=== PATIENT | female | born 1960 | race Two or more races ===

== ENCOUNTER 2016-05-19 18:27 | Emergency (ER) | payer MEDICAID ==
[~2016-05-19] VITALS: Ht 154.9 cm; Wt 65.8 kg
[2016-05-19 18:50] VITALS: BP 164/99
[2016-05-19] MEDS ORDERED: ALBUTEROL FS 2.5 MG/0.5 ML VIAL.NEB NEB ONE (19:30)
[2016-05-19] MEDS ORDERED: ALBUTEROL FS 2.5 MG/0.5 ML VIAL.NEB ONE (19:38)
== END 2016-05-19 20:50 | disposition home or self-care (01) ==
LOC: ER 18:31
DX: J32.9 Chronic sinusitis, unspecified (principal); J06.9 Acute upper respiratory infection, unspecified; I10 Essential (primary) hypertension; E11.9 Type 2 diabetes mellitus without complications; E78.00 Pure hypercholesterolemia, unspecified
CPT/HCPCS: 71010; 94640; 99283; A4606; Z7610

== ENCOUNTER 2016-07-04 16:58 | Emergency (ER) | payer MEDICAID ==
[~2016-07-04] VITALS: Ht 165.1 cm; Wt 63.5 kg
[2016-07-04 17:13] VITALS: BP 136/93
[2016-07-04] MEDS ORDERED: ACETAMINOPHEN ES 500 MG TABLET ONE (17:47)
[2016-07-04] MEDS ORDERED: ACETAMINOPHEN 325 MG TABLET PO ONE (18:00)
== END 2016-07-04 18:46 | disposition home or self-care (01) ==
LOC: ER 16:59
DX: M25.511 Pain in right shoulder (principal); E11.9 Type 2 diabetes mellitus without complications; E78.00 Pure hypercholesterolemia, unspecified; I10 Essential (primary) hypertension
CPT/HCPCS: 73030; 99284; A4606; Z7610

== ENCOUNTER 2016-07-21 17:58 | Emergency (ER) | payer MEDICAID ==
[~2016-07-21] VITALS: Ht 152.4 cm; Wt 66.7 kg
--- NOTE | 2016-07-21 17:58 | NUR ---
C/O R ARM PAIN X 6 DAYS, NO RECENT TRAUMA OR INJURY. NAD NOTED. PT AAO X4, AMB WITH STEADY GAIT. RR EVEN AND UNLABRED. VSS. PENDING MD DICKEY.
[2016-07-21 18:44] LABS: BASOPHILS % (AUTO) 0.5 % (0.0-2.0); EOSINOPHILS # (AUTO) 0.2 /CMM (0.0-0.7); EOSINOPHILS % (AUTO) 2.7 % (0.0-6.0); HEMATOCRIT 38 % (33-45); HEMOGLOBIN 12.8 g/dL (11.5-14.8); LYMPHOCYTES # (AUTO) 3.1 /CMM (0.8-4.8); LYMPHOCYTES % (AUTO) 38.5 % (20.0-44.0); MEAN CORPUSCULAR HEMOGLOBIN 31 PG (26.0-33.0); MEAN CORPUSCULAR HGB CONC 34 g/dl (31.0-36.0); MEAN CORPUSCULAR VOLUME 92 fL (82-100); MONOCYTES # (AUTO) 0.5 /CMM (0.1-1.30); MONOCYTES % (AUTO) 5.6 % (2.0-12.0); NEUTROPHILS # (AUTO) 4.2 /CMM (1.8-8.9); NEUTROPHILS % (AUTO) 52.7 % (43.0-81.0); PLATELET COUNT (AUTO) 306 /CMM (150-450); RED BLOOD CELL COUNT(AUTO) 4.13 MIL/uL (4.0-5.2); WHITE BLOOD COUNT (AUTO) 8.1 K/uL (4.3-11.0)
[2016-07-21 18:58] LABS: ALANINE AMINOTRANSFERASE 56 U/L (12-78); ALBUMIN 4.2 g/dL (3.4-5.0); ALKALINE PHOSPHATASE 103 U/L (46-116); ASPARTATE AMINOTRANSFERASE 38 U/L (15-37); BILIRUBIN,TOTAL 0.5 mg/dL (0.2-1.0); CALCIUM, SERUM 9.8 mg/dL (8.5-10.1); CARBON DIOXIDE 31 mmol/L (21-32); CHLORIDE 103 mmol/L (98-107); GFR 58 mL/min (>60); GLUCOSE 181 mg/dL (74-106); POTASSIUM 3.6 mmol/L (3.5-5.1); SODIUM SERUM 141 mmol/L (136-145); TOTAL PROTEIN, SERUM 7.5 g/dL (6.4-8.2); UREA NITROGEN, BLOOD 22 mg/dL (7-18)
[2016-07-21 19:00] LABS: TROPONIN I < 0.017 ng/mL (0.00-0.056)
--- NOTE | 2016-07-21 19:33 | NUR ---
PT A/OX4 BREATHING EFFORTLESSLY ON ROOM AIR, PT REPORT RECIVED FROM PER RN, PT SON AT BEDSIDE, PT ON MONITOR, MDMADE AWARE WILL CONTINUE TO MONITOR.
--- NOTE | 2016-07-21 20:40 | NUR ---
Patient discharged to home in stable condition. Written and verbal after care instructions given. Patient verbalizes understanding of instruction.
[2016-07-21 20:41] VITALS: BP 140/82
== END 2016-07-21 20:42 | disposition home or self-care (01) ==
LOC: ER 18:01
DX: M25.511 Pain in right shoulder (principal); I10 Essential (primary) hypertension; E78.00 Pure hypercholesterolemia, unspecified; E11.9 Type 2 diabetes mellitus without complications
CPT/HCPCS: 36415; 71010; 72040; 73030; 73130; 80053; 84484; 85025; 93005; 99285; A4606; Z7610

== ENCOUNTER 2016-11-07 16:10 | Emergency (ER) | payer MEDICAID ==
[~2016-11-07] VITALS: Ht 160 cm; Wt 72.6 kg
[2016-11-07 16:40] VITALS: BP 164/88
--- NOTE | 2016-11-07 17:22 | NUR ---
URINE OBTAINED AND SENT TO LAB
[2016-11-07 17:45] LABS: APPEARANCE,URINE CLEAR (CLEAR); BILIRUBIN,URINE NEGATIVE (NEGATIVE); BLOOD, URINE TRACE Ery/uL (NEGATIVE); COLOR,URINE YELLOW (YELLOW); KETONES,URINE NEGATIVE (NEGATIVE); LEUKOCYTE ESTERASE ,URINE TRACE (NEGATIVE); NITRITE, URINE NEGATIVE (NEGATIVE); PROTEIN,URINE NEGATIVE (NEGATIVE); UGLUCOSE 3+ mg/dL (NEGATIVE); UROBILINOGEN,URINE 0.2 EU/dL (0.2)
[2016-11-07 17:55] LABS: BACTERIA,URINE None seen /HPF (None Seen); RBC,URINE 0-2 /HPF (0-2); SQUAMOUS EPITHELIAL CELL,UR Few /HPF (None Seen); WBC,URINE 0-2 /HPF (0-3)
[2016-11-07] MEDS ORDERED: IV NS 0.9% 1,000 ML BAG IV ONE (18:00)
[2016-11-07] MEDS ORDERED: IV SET PRIMARY 1 EA INFUS.SET MC ONE (18:09)
[2016-11-07] MEDS ORDERED: IV NS 0.9% 1,000 ML ONE (18:09)
[2016-11-07 18:15] LABS: BASOPHILS # (AUTO) 0.1 /CMM (0.0-0.2); BASOPHILS % (AUTO) 1.4 % (0.0-2.0); EOSINOPHILS # (AUTO) 0.2 /CMM (0.0-0.7); EOSINOPHILS % (AUTO) 2.5 % (0.0-6.0); HEMATOCRIT 39 % (33-45); HEMOGLOBIN 13.2 g/dL (11.5-14.8); LYMPHOCYTES # (AUTO) 3.2 /CMM (0.8-4.8); LYMPHOCYTES % (AUTO) 43.7 % (20.0-44.0); MEAN CORPUSCULAR HEMOGLOBIN 31 PG (26.0-33.0); MEAN CORPUSCULAR HGB CONC 34 g/dl (31.0-36.0); MEAN CORPUSCULAR VOLUME 91 fL (82-100); MONOCYTES # (AUTO) 0.5 /CMM (0.1-1.30); MONOCYTES % (AUTO) 6.8 % (2.0-12.0); NEUTROPHILS # (AUTO) 3.2 /CMM (1.8-8.9); NEUTROPHILS % (AUTO) 45.6 % (43.0-81.0); PLATELET COUNT (AUTO) 264 /CMM (150-450); RED BLOOD CELL COUNT(AUTO) 4.29 MIL/uL (4.0-5.2); WHITE BLOOD COUNT (AUTO) 7.2 K/uL (4.3-11.0)
--- NOTE | 2016-11-07 18:17 | NUR ---
IV STARTED ON RIGHT HAND, 20 G, IV NS 1L STARTED.
[2016-11-07 18:49] LABS: CALCIUM, SERUM 8.9 mg/dL (8.5-10.1); CREATININE 0.9 mg/dL (0.6-1.3); POTASSIUM 3.9 mmol/L (3.5-5.1)
--- NOTE | 2016-11-07 19:03 | NUR ---
IV removed. Catheter intact and site benign. Pressure and 4x4 applied to site. No bleeding noted.Patient discharged to home in stable condition. Written and verbal after care instructions given. Patient verbalizes understanding of instruction. Ambulatory with a steady gait.
== END 2016-11-07 19:06 | disposition home or self-care (01) ==
LOC: ER 16:12
DX: N76.0 Acute vaginitis (principal); E11.9 Type 2 diabetes mellitus without complications; E78.00 Pure hypercholesterolemia, unspecified; I10 Essential (primary) hypertension
CPT/HCPCS: 36415; 80048; 81001; 82962 ×2; 85025; 96360; 99284; A4606; J7030; Z7610; 81000-TC

== ENCOUNTER 2017-02-13 17:25 | Emergency (ER) | payer MEDICAID ==
[~2017-02-13] VITALS: Ht 165.1 cm; Wt 63.5 kg
--- NOTE | 2017-02-13 17:45 | NUR ---
PRESENTS TO ER C/O R EYE REDNESS, HEADACHE, ELYSSA PAIN/BACK PAIN x 2 DAYS. A/OX 4. BREATHING EVEN AND UNLABORED. NO SOB. VITALS STABLE. SAFETY AND COMFORT MEASURES IN PLACE. AWAITING MD ORDERS.
[2017-02-13] MEDS ORDERED: HYDROCODONE/APAP 5/325MG 1 EACH TABLET ONE (18:18)
--- NOTE | 2017-02-13 18:25 | NUR ---
PATIENT MEDICATED PER MD ORDERS.
[2017-02-13] MEDS ORDERED: HYDROCODONE/APAP 5/325MG 1 EACH TABLET PO ONE (18:30)
--- NOTE | 2017-02-13 18:35 | NUR ---
Patient discharged to home in stable condition. Written and verbal after care instructions given. Patient verbalizes understanding of instruction.
[2017-02-13 18:43] VITALS: BP 129/72
== END 2017-02-13 18:43 | disposition home or self-care (01) ==
LOC: ER 17:34
DX: H11.31 Conjunctival hemorrhage, right eye (principal); R51 Headache; M54.2 Cervicalgia; I10 Essential (primary) hypertension; E11.9 Type 2 diabetes mellitus without complications; E78.00 Pure hypercholesterolemia, unspecified
CPT/HCPCS: 82962; 99282; A4606; Z7610

== ENCOUNTER 2017-05-03 00:22 | Emergency (ER) | payer MEDICAID ==
[~2017-05-03] VITALS: Ht 165.1 cm; Wt 63.5 kg
--- NOTE | 2017-05-03 00:37 | NUR ---
PT RECEIVED FROM HOME C/O N/V X1 DAY. NO SOB NOTED AT THIS TIME. NO PAIN AT THIS TIME. A/OX4 VSS NAD. WILL CONTINUE TO MONITOR FOR ANY CHANGES
--- NOTE | 2017-05-03 00:45 | NUR ---
ER AT BEDSIDE
[2017-05-03] MEDS ORDERED: MORPHINE SULFATE INJ 2 MG/ML DISP.SYRIN IV ONE (01:00)
[2017-05-03] MEDS ORDERED: ONDANSETRON HCL/PF 4 MG/2 ML VIAL IVP ONE (01:00)
[2017-05-03] MEDS ORDERED: IV NS 0.9% 1,000 ML BAG IV ONE (01:00)
[2017-05-03] MEDS ORDERED: ONDANSETRON HCL/PF 4 MG/2 ML VIAL ONE (01:02)
[2017-05-03] MEDS ORDERED: MORPHINE SULFATE INJ 4 MG/ML DISP.SYRIN ONE (01:03)
[2017-05-03 01:14] LABS: BASOPHILS % (AUTO) 0.2 % (0.0-2.0); EOSINOPHILS # (AUTO) 0.2 /CMM (0.0-0.7); EOSINOPHILS % (AUTO) 1.2 % (0.0-6.0); HEMATOCRIT 39 % (33-45); HEMOGLOBIN 13.4 g/dL (11.5-14.8); LYMPHOCYTES % (AUTO) 8.4 % (20.0-44.0); MEAN CORPUSCULAR HEMOGLOBIN 32 PG (26.0-33.0); MEAN CORPUSCULAR HGB CONC 34 g/dl (31.0-36.0); MEAN CORPUSCULAR VOLUME 92 fL (82-100); MONOCYTES # (AUTO) 0.4 /CMM (0.1-1.30); MONOCYTES % (AUTO) 3.1 % (2.0-12.0); NEUTROPHILS # (AUTO) 10.8 /CMM (1.8-8.9); NEUTROPHILS % (AUTO) 87.1 % (43.0-81.0); PLATELET COUNT (AUTO) 273 /CMM (150-450); RDW COEFFICIENT OF VARIATION 12.9 (11.5-15.0); RED BLOOD CELL COUNT(AUTO) 4.23 MIL/uL (4.0-5.2); WHITE BLOOD COUNT (AUTO) 12.4 K/uL (4.3-11.0)
[2017-05-03 01:16] LABS: APPEARANCE,URINE CLEAR (CLEAR); BILIRUBIN,URINE NEGATIVE (NEGATIVE); BLOOD, URINE NEGATIVE Ery/uL (NEGATIVE); COLOR,URINE YELLOW (YELLOW); KETONES,URINE NEGATIVE (NEGATIVE); LEUKOCYTE ESTERASE ,URINE 1+ (NEGATIVE); NITRITE, URINE NEGATIVE (NEGATIVE); PROTEIN,URINE NEGATIVE (NEGATIVE); UGLUCOSE TRACE mg/dL (NEGATIVE); UROBILINOGEN,URINE 0.2 EU/dL (0.2)
[2017-05-03 01:25] LABS: BACTERIA,URINE Moderate /HPF (None Seen); RBC,URINE 0-2 /HPF (0-2); SQUAMOUS EPITHELIAL CELL,UR Moderate /HPF (None Seen); WBC,URINE 21-50 /HPF (0-3)
[2017-05-03 01:27] LABS: CALCIUM, SERUM 8.6 mg/dL (8.5-10.1); CREATININE 0.8 mg/dL (0.6-1.3); POTASSIUM 3.5 mmol/L (3.5-5.1)
[2017-05-03 01:34] LABS: ALBUMIN 3.4 g/dL (3.4-5.0); BILIRUBIN,DIRECT 0.1 mg/dL (0.0-0.2); BILIRUBIN,TOTAL 0.7 mg/dL (0.2-1.0); TOTAL PROTEIN, SERUM 7.1 g/dL (6.4-8.2)
[2017-05-03 03:32] VITALS: BP 148/93
== END 2017-05-03 03:33 | disposition home or self-care (01) ==
LOC: ER 00:23
DX: N39.0 Urinary tract infection, site not specified (principal); K76.0 Fatty (change of) liver, not elsewhere classified; E11.9 Type 2 diabetes mellitus without complications; E78.00 Pure hypercholesterolemia, unspecified; E86.0 Dehydration; I10 Essential (primary) hypertension; N30.00 Acute cystitis without hematuria
CPT/HCPCS: 36415; 76705; 80048; 80076; 81001; 83690; 85025; 87086; 96374; 96375; 99285; A4606; J2270; J2405; J7030 ×2; Z7610; 81000-TC

== ENCOUNTER 2017-07-17 20:43 | Emergency (ER) | payer SELFPAY ==
[~2017-07-17] VITALS: Ht 160 cm; Wt 63.5 kg
[2017-07-17 20:51] VITALS: BP 136/77
[2017-07-17 21:07] LABS: APPEARANCE,URINE Clear (CLEAR); BILIRUBIN,URINE Negative (NEGATIVE); BLOOD, URINE Trace-intact Ery/uL (NEGATIVE); COLOR,URINE Yellow (YELLOW); KETONES,URINE Negative (NEGATIVE); LEUKOCYTE ESTERASE ,URINE Small (NEGATIVE); NITRITE, URINE Negative (NEGATIVE); PH,URINE 7.5 (5.0-8.0); PROTEIN,URINE Negative (NEGATIVE); UGLUCOSE >=1000 mg/dL (NEGATIVE); UROBILINOGEN,URINE 0.2 EU/dL (0.2)
[2017-07-17 21:29] LABS: BACTERIA,URINE Few /HPF (None Seen); RBC,URINE 2-4/HPF /HPF (0-2); WBC,URINE 51-80 /HPF (0-3)
[2017-07-17 21:30] LABS: SQUAMOUS EPITHELIAL CELL,UR Few /HPF (None Seen); URINE AMORPHOUS URATE Few /HPF (None Seen)
== END 2017-07-17 22:20 | disposition home or self-care (01) ==
LOC: ER 20:47
DX: N39.0 Urinary tract infection, site not specified (principal); E11.9 Type 2 diabetes mellitus without complications; E78.00 Pure hypercholesterolemia, unspecified; I10 Essential (primary) hypertension
CPT/HCPCS: 81000-TC; 87086-TC; 87186-TC; A4606; Z7610

== ENCOUNTER 2017-11-15 15:38 | Emergency (ER) | payer SELFPAY ==
[~2017-11-15] VITALS: Ht 160 cm; Wt 69.4 kg
[2017-11-15] MEDS ORDERED: MECLIZINE HCL 25 MG TABLET PO ONE (16:00)
[2017-11-15] MEDS ORDERED: ONDANSETRON HCL/PF - ER 4 MG/2 ML VIAL IV ONE (16:00)
[2017-11-15] MEDS ORDERED: ONDANSETRON HCL/PF 4 MG/2 ML VIAL ONE (16:05)
[2017-11-15] MEDS ORDERED: MECLIZINE HCL 25 MG TABLET ONE (16:05)
[2017-11-15 16:15] LABS: BASOPHILS % (AUTO) 0.6 % (0.0-2.0); EOSINOPHILS % (AUTO) 2.6 % (0.0-6.0); HEMATOCRIT 40 % (33-45); HEMOGLOBIN 13.6 g/dL (11.5-14.8); LYMPHOCYTES # (AUTO) 2.6 /CMM (0.8-4.8); MEAN CORPUSCULAR HEMOGLOBIN 32 PG (26.0-33.0); MEAN CORPUSCULAR HGB CONC 35 g/dl (31.0-36.0); MEAN CORPUSCULAR VOLUME 93 fL (82-100); MONOCYTES # (AUTO) 0.4 /CMM (0.1-1.30); MONOCYTES % (AUTO) 5.3 % (2.0-12.0); NEUTROPHILS # (AUTO) 3.9 /CMM (1.8-8.9); NEUTROPHILS % (AUTO) 55.5 % (43.0-81.0); PLATELET COUNT (AUTO) 250 /CMM (150-450); RDW COEFFICIENT OF VARIATION 12.5 (11.5-15.0); RED BLOOD CELL COUNT(AUTO) 4.22 MIL/uL (4.0-5.2); WHITE BLOOD COUNT (AUTO) 7.1 K/uL (4.3-11.0)
[2017-11-15 16:22] LABS: CALCIUM, SERUM 9.8 mg/dL (8.5-10.1); CREATININE 0.7 mg/dL (0.6-1.3); POTASSIUM 3.7 mmol/L (3.5-5.1)
--- NOTE | 2017-11-15 16:23 | NUR ---
PATIENT IS BACK FROM CT
[2017-11-15 16:27] LABS: INR 0.88 (0.85-1.15)
[2017-11-15 17:35] VITALS: BP 148/80
--- NOTE | 2017-11-15 17:36 | NUR ---
Patient discharged to home in stable condition. Written and verbal after care instructions given. Patient verbalizes understanding of instruction.IV removed. Catheter intact and site benign. Pressure and 4x4 applied to site. No bleeding noted.
== END 2017-11-15 17:37 | disposition home or self-care (01) ==
LOC: ER 15:42
DX: R42 Dizziness and giddiness (principal); I10 Essential (primary) hypertension; E11.9 Type 2 diabetes mellitus without complications; E78.00 Pure hypercholesterolemia, unspecified; Z98.890 Other specified postprocedural states
CPT/HCPCS: 36415; 70450-TC; 80048-TC; 85025-TC; 85730-TC; A4606; J2405; J8597; Z7610

== ENCOUNTER 2018-09-13 10:17 | Emergency (ER) | payer MEDICAID ==
[~2018-09-13] VITALS: Ht 165.1 cm; Wt 74.8 kg
[2018-09-13 10:55] LABS: APPEARANCE,URINE Slightly Cloudy (CLEAR); BILIRUBIN,URINE Negative (NEGATIVE); BLOOD, URINE Moderate Ery/uL (NEGATIVE); COLOR,URINE Yellow (YELLOW); KETONES,URINE Negative (NEGATIVE); LEUKOCYTE ESTERASE ,URINE Small (NEGATIVE); NITRITE, URINE Negative (NEGATIVE); PH,URINE 5.5 (5.0-8.0); PROTEIN,URINE Negative (NEGATIVE); UGLUCOSE 250 MG/DL mg/dL (NEGATIVE); UROBILINOGEN,URINE 0.2 EU/dL (0.2)
[2018-09-13 11:04] LABS: RBC,URINE 21-50 /HPF (0-2)
[2018-09-13 11:05] LABS: BACTERIA,URINE Few /HPF (None Seen); SQUAMOUS EPITHELIAL CELL,UR Few /HPF (None Seen); WBC,URINE 81-100 /HPF (0-3)
[2018-09-13] MEDS ORDERED: CEFTRIAXONE 500 MG VIAL ONE (11:30)
[2018-09-13] MEDS ORDERED: CEFTRIAXONE 500 MG VIAL IM ONE (11:30)
[2018-09-13] MEDS ORDERED: LIDOCAINE /MPF 1% VIAL 5 ML VIAL ONE (11:31)
--- NOTE | 2018-09-13 11:44 | NUR ---
Patient discharged to home in stable condition. Written and verbal after care instructions given. Patient verbalizes understanding of instruction.
[2018-09-13 11:46] VITALS: BP 148/75
== END 2018-09-13 11:46 | disposition home or self-care (01) ==
LOC: ER 10:24
DX: N39.0 Urinary tract infection, site not specified (principal); I10 Essential (primary) hypertension; E11.9 Type 2 diabetes mellitus without complications; E78.00 Pure hypercholesterolemia, unspecified
CPT/HCPCS: 81001; 87086; 96372; 99283; J0696; J3490; 81000-TC

== ENCOUNTER 2019-01-10 15:27 | Emergency (ER) | payer MEDICAID, OTHER ==
[~2019-01-10] VITALS: Ht 152.4 cm; Wt 71.2 kg
[2019-01-10 15:30] VITALS: BP 157/92
--- NOTE | 2019-01-10 16:28 | NUR ---
SEEN AND EXAMINED BY ELISABET KING.
[2019-01-10] MEDS ORDERED: MORPHINE SULFATE INJ 10 MG/ML DISP.SYRIN IV ONE (16:30)
[2019-01-10] MEDS ORDERED: KETOROLAC TROMETHAMINE INJ 60 MG/2 ML VIAL IM ONE (16:30)
[2019-01-10] MEDS ORDERED: KETOROLAC TROMETHAMINE INJ 30 MG/ML VIAL ONE (16:43)
[2019-01-10] MEDS ORDERED: MORPHINE SULFATE INJ 4 MG/ML DISP.SYRIN ONE (16:43)
--- NOTE | 2019-01-10 16:52 | NUR ---
PT IS WHEELED TO CT SCAN VIA [facility]
== END 2019-01-10 18:22 | disposition home or self-care (01) ==
LOC: ER 15:44
DX: M54.12 Radiculopathy, cervical region (principal); M50.321 Other cervical disc degeneration at C4-C5 level; I10 Essential (primary) hypertension; R51 Headache; E11.9 Type 2 diabetes mellitus without complications; E78.00 Pure hypercholesterolemia, unspecified
CPT/HCPCS: 72125; 96372; 96374; 99284; J1885; J2270

== ENCOUNTER 2019-03-16 15:29 | Emergency (ER) | payer MEDICAID, OTHER ==
[~2019-03-16] VITALS: Ht 162.6 cm; Wt 73.5 kg
[2019-03-16 15:35] VITALS: BP 152/79
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
--- NOTE | 2019-03-16 15:59 | NUR ---
FERNANDO NAZ AT BEDSIDE
[2019-03-16] MEDS ORDERED: HYDROCODONE/APAP 5/325MG 1 EACH TABLET PO ONE (16:30)
[2019-03-16] MEDS ORDERED: CYCLOBENZAPRINE 10 MG TABLET PO ONE (16:30)
[2019-03-16] MEDS ORDERED: HYDROCODONE/APAP 5/325MG 1 EACH TABLET ONE (16:33)
[2019-03-16] MEDS ORDERED: CYCLOBENZAPRINE 10 MG TABLET ONE (16:33)
--- NOTE | 2019-03-16 17:26 | NUR ---
Patient discharged to home in stable condition. Written and verbal after care instructions given. Patient verbalizes understanding of instruction.
--- NOTE | 2019-03-16 17:27 | NUR ---
Patient discharged to home in stable condition. Written and verbal after care instructions given. Patient verbalizes understanding of instruction.
== END 2019-03-16 17:28 | disposition home or self-care (01) ==
LOC: ER 15:31 → EDBD 15:31 → ER 17:28
DX: S16.1XXA Strain of muscle, fascia and tendon at neck level, initial encounter (principal); M25.511 Pain in right shoulder; R51 Headache; E11.9 Type 2 diabetes mellitus without complications; I10 Essential (primary) hypertension; E78.00 Pure hypercholesterolemia, unspecified; V49.49XA Driver injured in collision with other motor vehicles in traffic accident, initial encounter; Y93.89 Activity, other specified; Y92.413 State road as the place of occurrence of the external cause; Y99.8 Other external cause status
CPT/HCPCS: 72050-TC; 73030-TC

== ENCOUNTER 2019-05-26 16:40 | Emergency (ER) | payer OTHER, MEDICAID ==
[~2019-05-26] VITALS: Ht 162.6 cm; Wt 68.0 kg
--- NOTE | 2019-05-26 16:55 | NUR ---
CAME IN FOR COUGH AND CONGESTION X 1 MONTH, SEASONAL ALLERGIES X 1 MONTH, TO ER BED 11, HOOKED TO MONITOR, CHANGED TO HOSP GOWN, PROVIDED W WARM BLANKET, AOx 4, BREATHING EVEN AND UNLABORED, NAD NOTED. AWAITING MD DICKEY
--- NOTE | 2019-05-26 17:09 | NUR ---
FERNANDO KIM AT BEDSIDE
[2019-05-26] MEDS ORDERED: ACETAMINOPHEN 325 MG TABLET PO ONE (17:30)
[2019-05-26] MEDS ORDERED: ACETAMINOPHEN ES 500 MG TABLET ONE (17:38)
--- NOTE | 2019-05-26 17:41 | NUR ---
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
--- NOTE | 2019-05-26 18:30 | NUR ---
Patient discharged to home in stable condition. Written and verbal after care instructions given. Patient verbalizes understanding of instruction.
[2019-05-26 18:38] VITALS: BP 154/71
== END 2019-05-26 18:50 | disposition home or self-care (01) ==
LOC: ER 16:45
DX: J45.909 Unspecified asthma, uncomplicated (principal); J98.11 Atelectasis; I10 Essential (primary) hypertension; E78.00 Pure hypercholesterolemia, unspecified; E11.9 Type 2 diabetes mellitus without complications
CPT/HCPCS: 71045-TC

== ENCOUNTER 2022-02-20 18:34 | Emergency (ER) | payer MEDICAID, OTHER ==
[~2022-02-20] VITALS: Ht 165.1 cm; Wt 73.0 kg
--- NOTE | 2022-02-20 18:54 | NUR ---
To ER bed 2, c/o bilateral eye itching, pain and discharge x 3 days. taking allergy meds, aaox3, breathing even and non labored, awaiting md tony
[2022-02-20] MEDS ORDERED: LORA10TA7 PO (19:20)
[2022-02-20] MEDS ORDERED: HYDR453.3 TP (19:20)
[2022-02-20] MEDS ORDERED: diphenhydrAMINE HCL 25 MG CAPSULE PO ONE (19:30)
[2022-02-20] MEDS ORDERED: diphenhydrAMINE HCL 50 MG CAPSULE ONE (19:31)
--- NOTE | 2022-02-20 19:34 | NUR ---
Patient discharged to home in stable condition. Written and verbal after care instructions given. Patient verbalizes understanding of instruction. PT ambulatory with a steady gait
[2022-02-20 19:35] VITALS: BP 161/88
== END 2022-02-20 19:38 | disposition home or self-care (01) ==
LOC: ER 18:34
DX: L25.9 Unspecified contact dermatitis, unspecified cause (principal); H10.13 Acute atopic conjunctivitis, bilateral; I10 Essential (primary) hypertension; E11.9 Type 2 diabetes mellitus without complications; E78.00 Pure hypercholesterolemia, unspecified; Z79.899 Other long term (current) drug therapy
CPT/HCPCS: 99282; Q0163

== ENCOUNTER 2022-06-04 15:28 | Emergency (ER) | payer MEDICAID ==
[~2022-06-04] VITALS: Ht 157.5 cm; Wt 72.6 kg
[~2022-06-04 15:28] MED LIST: HYDR453.3 TP; LORA10TA7 PO
[2022-06-04 15:40] VITALS: BP 156/77
[2022-06-04] MEDS ORDERED: PRED50TA PO (15:54)
[2022-06-04] MEDS ORDERED: predniSONE 20 MG TABLET ONE (16:00)
[2022-06-04] MEDS: predniSONE 50 MG TABLET PO ONE (16:05)
--- NOTE | 2022-06-04 16:07 | NUR ---
Patient discharged to home in stable condition. Written and verbal after care instructions given. Patient verbalizes understanding of instruction.
== END 2022-06-04 16:06 | disposition home or self-care (01) ==
LOC: ER 15:38
DX: J30.9 Allergic rhinitis, unspecified (principal); I10 Essential (primary) hypertension; E78.00 Pure hypercholesterolemia, unspecified; E11.9 Type 2 diabetes mellitus without complications; Z79.899 Other long term (current) drug therapy

== ENCOUNTER 2022-07-06 09:33 | Emergency (ER) | payer MEDICAID ==
[~2022-07-06] VITALS: Ht 160 cm; Wt 79.4 kg
[~2022-07-06 09:33] MED LIST changes: +PRED50TA PO
[2022-07-06 09:46] VITALS: BP 155/88
--- NOTE | 2022-07-06 09:46 | NUR ---
bib family for cough x 3 days, sore throat and body aches x 3 days
[2022-07-06] MEDS ORDERED: KETOROLAC TROMETHAMINE 15 MG/ML VIAL ONE (10:58)
[2022-07-06] MEDS ORDERED: KETOROLAC TROMETHAMINE INJ 30 MG/ML VIAL IM ONE (11:00)
--- NOTE | 2022-07-06 11:00 | NUR ---
COVID SWAB COLLECTED AND SENT
[2022-07-06] MEDS ORDERED: BENZ-13 PO (11:14)
[2022-07-06] MEDS ORDERED: IBUP-1955 PO (11:14)
--- NOTE | 2022-07-06 11:43 | NUR ---
Patient discharged to home in stable condition. Written and verbal after care instructions given. Patient verbalizes understanding of instruction.
== END 2022-07-06 11:44 | disposition home or self-care (01) ==
LOC: ER 09:38
DX: J02.8 Acute pharyngitis due to other specified organisms (principal); J06.9 Acute upper respiratory infection, unspecified; R05.9 Cough, unspecified; I10 Essential (primary) hypertension; E11.9 Type 2 diabetes mellitus without complications; E78.5 Hyperlipidemia, unspecified; Z79.899 Other long term (current) drug therapy; Z20.822 Contact with and (suspected) exposure to COVID-19
CPT/HCPCS: 99283; 87426; 96372; J1885; C9803

== ENCOUNTER 2022-10-07 11:59 | Emergency (ER) | payer MEDICAID ==
[~2022-10-07] VITALS: Ht 157.5 cm; Wt 78.9 kg
[~2022-10-07 11:59] MED LIST changes: +BENZ-13 PO; +IBUP-1955 PO
--- NOTE | 2022-10-07 12:27 | NUR ---
IV LINE IS ESTABLISHED, BLOOD SPECIMEN COLLECTED AND SENT TO THE LAB. THE LINE IS SALINE LOCKED.
--- NOTE | 2022-10-07 12:28 | NUR ---
NAUSEA, HEAD AND BODYACHES SINCE MONDAY. VOMITTED 2X TODAY. RATES PAINS 11/07. WILL CONTINUE TO MONITOR THE PATIENT.
[2022-10-07] MEDS ORDERED: IV NS 0.9% 1,000 ML BAG IV ONE (12:30)
[2022-10-07] MEDS ORDERED: ONDANSETRON HCL/PF 4 MG/2 ML VIAL IVP ONE (12:30)
[2022-10-07] MEDS ORDERED: ONDANSETRON HCL/PF 4 MG/2 ML VIAL ONE (12:30)
--- NOTE | 2022-10-07 12:36 | NUR ---
URINE COLLECTED AND SENT TO THE LAB
[2022-10-07 12:41] LABS: BASOPHILS % (AUTO) 0.5 % (0.0-2.0); EOSINOPHILS % (AUTO) 3.7 % (0.0-6.0); HEMATOCRIT 40 % (33-45); HEMOGLOBIN 13.1 g/dL (11.5-14.8); LYMPHOCYTES # (AUTO) 2.3 K/uL (0.8-4.8); MEAN CORPUSCULAR HGB CONC 33 g/dl (31.0-36.0); MEAN CORPUSCULAR VOLUME 94 fL (82-100); MONOCYTES # (AUTO) 0.5 K/uL (0.1-1.30); MONOCYTES % (AUTO) 7.9 % (2.0-12.0); NEUTROPHILS # (AUTO) 3.7 K/uL (1.8-8.9); NEUTROPHILS % (AUTO) 53.9 % (43.0-81.0); PLATELET COUNT (AUTO) 282 K/uL (150-450); RED BLOOD CELL COUNT(AUTO) 4.27 MIL/uL (4.0-5.2); WHITE BLOOD COUNT (AUTO) 6.8 K/uL (4.3-11.0)
[2022-10-07 12:48] LABS: CALCIUM, SERUM 9.9 mg/dL (8.5-10.1); CREATININE 0.7 mg/dL (0.6-1.3); POTASSIUM 3.9 mmol/L (3.5-5.1)
[2022-10-07 12:53] LABS: ALBUMIN 3.6 g/dL (3.4-5.0); BILIRUBIN,DIRECT 0.1 mg/dL (0.0-0.2); BILIRUBIN,TOTAL 0.6 mg/dL (0.2-1.0); TOTAL PROTEIN, SERUM 7.5 g/dL (6.4-8.2)
[2022-10-07 13:35] LABS: BILIRUBIN,URINE NEGATIVE (NEGATIVE); COLOR,URINE YELLOW (YELLOW); LEUKOCYTE ESTERASE ,URINE NEGATIVE (NEGATIVE); NITRITE, URINE NEGATIVE (NEGATIVE); PROTEIN,URINE NEGATIVE (NEGATIVE); UGLUCOSE NEGATIVE (NEGATIVE); UROBILINOGEN,URINE 0.2 EU/dL (0.2)
[2022-10-07] MEDS ORDERED: ONDA4TAB11 PO (13:43)
[2022-10-07 14:11] VITALS: BP 155/84
--- NOTE | 2022-10-07 14:11 | NUR ---
IV removed. Catheter intact and site benign. Pressure and 4x4 applied to site. No bleeding noted.Patient discharged to home in stable condition. Written and verbal after care instructions given. Patient verbalizes understanding of instruction.
== END 2022-10-07 14:11 | disposition home or self-care (01) ==
LOC: ER 12:03
DX: R11.2 Nausea with vomiting, unspecified (principal); I10 Essential (primary) hypertension; E78.5 Hyperlipidemia, unspecified; E11.9 Type 2 diabetes mellitus without complications; E78.00 Pure hypercholesterolemia, unspecified; Z79.899 Other long term (current) drug therapy
CPT/HCPCS: 99283; 96374; 96361; 85025; 80048; 80076; 81003; 36415; J2405; J7030

== ENCOUNTER 2023-03-18 21:09 | Emergency (ER) | payer MEDICAID ==
[~2023-03-18] VITALS: Ht 160 cm; Wt 72.6 kg
[~2023-03-18 21:09] MED LIST changes: +ONDA4TAB11 PO
[2023-03-18] MEDS: MORPHINE SULFATE INJ 2 MG/ML DISP.SYRIN IV ONE (21:30)
[2023-03-18 22:11] LABS: APPEARANCE,URINE CLEAR (CLEAR); BILIRUBIN,URINE NEGATIVE (NEGATIVE); BLOOD, URINE NEGATIVE Ery/uL (NEGATIVE); COLOR,URINE YELLOW (YELLOW); KETONES,URINE NEGATIVE (NEGATIVE); LEUKOCYTE ESTERASE ,URINE 1+ (NEGATIVE); NITRITE, URINE NEGATIVE (NEGATIVE); PH,URINE 7.5 (5.0-8.0); PROTEIN,URINE NEGATIVE (NEGATIVE); UGLUCOSE NEGATIVE (NEGATIVE); UROBILINOGEN,URINE 0.2 EU/dL (0.2)
[2023-03-18 22:26] LABS: ADD URINE CULTURE YES; BACTERIA,URINE 1+ /HPF (None Seen); RBC,URINE NONE SEEN /HPF (0-2)
[2023-03-18] MEDS ORDERED: MORPHINE SULFATE INJ 4 MG/ML DISP.SYRIN ONE (22:41)
[2023-03-18 22:44] LABS: BASOPHILS % (AUTO) 0.4 % (0.0-2.0); EOSINOPHILS # (AUTO) 0.2 K/uL (0.0-0.7); EOSINOPHILS % (AUTO) 2.7 % (0.0-6.0); HEMATOCRIT 37 % (33-45); HEMOGLOBIN 12.2 g/dL (11.5-14.8); LYMPHOCYTES # (AUTO) 2.6 K/uL (0.8-4.8); LYMPHOCYTES % (AUTO) 35.4 % (20.0-44.0); MEAN CORPUSCULAR HEMOGLOBIN 31 PG (26.0-33.0); MEAN CORPUSCULAR HGB CONC 33 g/dl (31.0-36.0); MEAN CORPUSCULAR VOLUME 94 fL (82-100); MONOCYTES # (AUTO) 0.7 K/uL (0.1-1.30); MONOCYTES % (AUTO) 9.2 % (2.0-12.0); NEUTROPHILS # (AUTO) 3.9 K/uL (1.8-8.9); NEUTROPHILS % (AUTO) 52.3 % (43.0-81.0); PLATELET COUNT (AUTO) 248 K/uL (150-450); RED BLOOD CELL COUNT(AUTO) 3.96 MIL/uL (4.0-5.2); RED CELL DISTRIBUTION WIDTH 13.8 % (11.5-15.0); WHITE BLOOD COUNT (AUTO) 7.5 K/uL (4.3-11.0)
[2023-03-18 23:02] LABS: CALCIUM, SERUM 9.1 mg/dL (8.5-10.1); CREATININE 0.9 mg/dL (0.6-1.3); POTASSIUM 3.7 mmol/L (3.5-5.1)
[2023-03-18 23:06] LABS: ALBUMIN 3.3 g/dL (3.4-5.0); BILIRUBIN,DIRECT 0.1 mg/dL (0.0-0.2); BILIRUBIN,TOTAL 0.5 mg/dL (0.2-1.0)
[2023-03-19] MEDS ORDERED: NITR100C6 PO (01:11)
[2023-03-19] MEDS ORDERED: NITROFURANTOIN/MONOHYDRATE MACROCRYSTALS 100 MG CAPSULE ONE (01:33)
[2023-03-19] MEDS: NITROFURANTOIN/MONOHYDRATE MACROCRYSTALS 100 MG CAPSULE PO ONE (01:42)
[2023-03-19 01:45] VITALS: BP 151/80; TEMP 98.2; O2SAT 98
== END 2023-03-19 01:46 | disposition home or self-care (01) ==
LOC: ER 21:10
DX: N39.0 Urinary tract infection, site not specified (principal); R10.30 Lower abdominal pain, unspecified; I10 Essential (primary) hypertension; E78.00 Pure hypercholesterolemia, unspecified; E11.9 Type 2 diabetes mellitus without complications
CPT/HCPCS: 99285; 74176; 96374; 85025; 80048; 87086; 83690; 80076; 81001; 36415; J2270

== ENCOUNTER 2023-04-27 09:51 | Emergency (ER) | payer MEDICAID ==
[~2023-04-27] VITALS: Ht 154.9 cm; Wt 75.7 kg
[~2023-04-27 09:51] MED LIST changes: +NITR100C6 PO
[2023-04-27] MEDS ORDERED: IBUPROFEN 600 MG TABLET ONE (12:07)
[2023-04-27] MEDS: IBUPROFEN 600 MG TABLET PO ONE (12:10)
[2023-04-27 13:18] VITALS: BP 132/78; TEMP 98.6; O2SAT 100
== END 2023-04-27 13:19 | disposition home or self-care (01) ==
LOC: ER 09:51
DX: B34.9 Viral infection, unspecified (principal); R51.9 Headache, unspecified; R68.83 Chills (without fever); R05.9 Cough, unspecified; I10 Essential (primary) hypertension; E78.5 Hyperlipidemia, unspecified; E11.9 Type 2 diabetes mellitus without complications; E78.00 Pure hypercholesterolemia, unspecified; Z20.822 Contact with and (suspected) exposure to COVID-19
CPT/HCPCS: 99284; 71045; 87426; 87804 ×2; C9803

== ENCOUNTER 2023-07-23 11:22 | Emergency (ER) | payer MEDICAID ==
[~2023-07-23] VITALS: Ht 160 cm; Wt 72.6 kg
[2023-07-23] MEDS ORDERED: KETOROLAC TROMETHAMINE INJ 30 MG/ML VIAL ONE (12:36)
[2023-07-23] MEDS ORDERED: LORAZEPAM 1 MG TABLET ONE (12:36)
[2023-07-23] MEDS ORDERED: MECLIZINE HCL 25 MG TABLET ONE (12:36)
[2023-07-23] MEDS: MECLIZINE HCL 12.5 MG TABLET PO ONE (12:43)
[2023-07-23] MEDS: LORAZEPAM 1 MG TABLET PO ONE (12:43)
[2023-07-23] MEDS: KETOROLAC TROMETHAMINE INJ 60 MG/2 ML VIAL IM ONE (12:43)
[2023-07-23] MEDS ORDERED: MECL-159 PO (13:24)
[2023-07-23] MEDS ORDERED: PROMETHAZINE HCL SYRUP 6.25 MG/5 ML UDC PO STA (13:39)
[2023-07-23] MEDS ORDERED: diphenhydrAMINE HCL ELIX 25 MG/10 ML UDC ONE (14:02)
[2023-07-23] MEDS ORDERED: SCOPOLAMINE PATCH 1 MG/72HR TD ONE (14:03)
[2023-07-23] MEDS: DIPHENHYDRAMINE HCL 12.5 MG/5 ML UDC PO ONE (14:08)
[2023-07-23] MEDS: SCOPOLAMINE PATCH 1 MG/72HR TD ONE (14:09)
[2023-07-23] MEDS ORDERED: SCOP1PAT11 TD (14:52)
[2023-07-23 14:59] VITALS: BP 141/87; TEMP 98.2; O2SAT 100
== END 2023-07-23 15:00 | disposition home or self-care (01) ==
LOC: ER 11:29
DX: R42 Dizziness and giddiness (principal); I10 Essential (primary) hypertension; E11.9 Type 2 diabetes mellitus without complications
CPT/HCPCS: 99285; 70450; 96372; J8597; Q0163 ×2; Q0169; J1885

== ENCOUNTER 2023-08-11 08:58 | Emergency (ER) | payer MEDICAID ==
[~2023-08-11] VITALS: Ht 160 cm; Wt 72.6 kg
[~2023-08-11 08:58] MED LIST changes: +MECL-159 PO; +SCOP1PAT11 TD
[2023-08-11] MEDS ORDERED: KETOROLAC TROMETHAMINE INJ 30 MG/ML VIAL ONE (09:30)
[2023-08-11] MEDS ORDERED: CYCLOBENZAPRINE 10 MG TABLET ONE (09:30)
[2023-08-11] MEDS ORDERED: KETOROLAC TROMETHAMINE INJ 30 MG/ML VIAL IV ONE (09:30)
[2023-08-11] MEDS: KETOROLAC TROMETHAMINE INJ 60 MG/2 ML VIAL IM ONE (09:32)
[2023-08-11] MEDS: CYCLOBENZAPRINE 10 MG TABLET PO ONE (09:32)
[2023-08-11 10:06] LABS: BASOPHILS % (AUTO) 0.6 % (0.0-2.0); EOSINOPHILS # (AUTO) 0.2 K/uL (0.0-0.7); EOSINOPHILS % (AUTO) 4.2 % (0.0-6.0); HEMATOCRIT 39 % (33-45); LYMPHOCYTES # (AUTO) 2.3 K/uL (0.8-4.8); LYMPHOCYTES % (AUTO) 39.3 % (20.0-44.0); MEAN CORPUSCULAR HEMOGLOBIN 32 PG (26.0-33.0); MEAN CORPUSCULAR HGB CONC 33 g/dl (31.0-36.0); MEAN CORPUSCULAR VOLUME 95 fL (82-100); MONOCYTES # (AUTO) 0.3 K/uL (0.1-1.30); MONOCYTES % (AUTO) 5.6 % (2.0-12.0); NEUTROPHILS # (AUTO) 2.9 K/uL (1.8-8.9); NEUTROPHILS % (AUTO) 50.3 % (43.0-81.0); PLATELET COUNT (AUTO) 234 K/uL (150-450); RED BLOOD CELL COUNT(AUTO) 4.14 MIL/uL (4.0-5.2); RED CELL DISTRIBUTION WIDTH 13.6 % (11.5-15.0); WHITE BLOOD COUNT (AUTO) 5.7 K/uL (4.3-11.0)
[2023-08-11 10:16] LABS: CALCIUM, SERUM 9.3 mg/dL (8.5-10.1); CREATININE 0.7 mg/dL (0.6-1.3); POTASSIUM 4.1 mmol/L (3.5-5.1)
[2023-08-11 10:22] LABS: ALBUMIN 3.3 g/dL (3.4-5.0); BILIRUBIN,DIRECT 0.2 mg/dL (0.0-0.2); BILIRUBIN,TOTAL 0.7 mg/dL (0.2-1.0); TOTAL PROTEIN, SERUM 7.2 g/dL (6.4-8.2)
[2023-08-11 11:32] LABS: APPEARANCE,URINE Clear (CLEAR); BILIRUBIN,URINE Negative (NEGATIVE); BLOOD, URINE Negative Ery/uL (NEGATIVE); COLOR,URINE YELLOW (YELLOW); KETONES,URINE Negative (NEGATIVE); LEUKOCYTE ESTERASE ,URINE Negative (NEGATIVE); NITRITE, URINE Negative (NEGATIVE); PROTEIN,URINE Negative (NEGATIVE); UGLUCOSE 250 MG/DL mg/dL (NEGATIVE); UROBILINOGEN,URINE 0.2 EU/dL (0.2)
[2023-08-11] MEDS ORDERED: CYCL5TAB PO (11:41)
[2023-08-11 12:22] VITALS: BP 126/74; TEMP 98.2; O2SAT 98
== END 2023-08-11 12:27 | disposition home or self-care (01) ==
LOC: ER 09:02
DX: M54.50 Low back pain, unspecified (principal); I10 Essential (primary) hypertension; E11.9 Type 2 diabetes mellitus without complications; E78.00 Pure hypercholesterolemia, unspecified; Z79.899 Other long term (current) drug therapy
CPT/HCPCS: 99285; 74176; 96372; 85025; 80048; 87086; 83690; 80076; 81003; 36415; J1885

== ENCOUNTER 2023-12-20 17:43 | Emergency (ER) | payer MEDICAID ==
[~2023-12-20] VITALS: Ht 167.6 cm; Wt 63.5 kg
[~2023-12-20 17:43] MED LIST changes: +CYCL5TAB PO
[2023-12-20] MEDS ORDERED: IBUPROFEN 600 MG TABLET ONE (19:11)
[2023-12-20] MEDS ORDERED: ACETAMINOPHEN ES 500 MG TABLET ONE (19:11)
[2023-12-20] MEDS: IBUPROFEN 600 MG TABLET PO ONE (19:13)
[2023-12-20] MEDS: ACETAMINOPHEN ES 500 MG TABLET PO ONE (19:13)
[2023-12-20] MEDS ORDERED: IBUP-1953 PO (19:23)
[2023-12-20 19:33] VITALS: BP 130/79; TEMP 98.2; O2SAT 99
== END 2023-12-20 19:34 | disposition home or self-care (01) ==
LOC: ER 17:48
DX: S90.121A Contusion of right lesser toe(s) without damage to nail, initial encounter (principal); I10 Essential (primary) hypertension; E11.9 Type 2 diabetes mellitus without complications; E78.00 Pure hypercholesterolemia, unspecified; Z79.1 Long term (current) use of non-steroidal anti-inflammatories (NSAID); Z98.890 Other specified postprocedural states; Z79.899 Other long term (current) drug therapy; Z79.891 Long term (current) use of opiate analgesic; W20.8XXA Other cause of strike by thrown, projected or falling object, initial encounter; Y93.89 Activity, other specified; Y92.89 Other specified places as the place of occurrence of the external cause; Y99.8 Other external cause status
CPT/HCPCS: 73660-TC

== ENCOUNTER 2024-01-28 15:25 | Emergency (ER) | payer MEDICAID ==
[~2024-01-28] VITALS: Ht 157.5 cm; Wt 74.8 kg
[~2024-01-28 15:25] MED LIST changes: +IBUP-1953 PO
[2024-01-28] MEDS ORDERED: ACETAMINOPHEN ES 500 MG TABLET ONE (16:03)
[2024-01-28] MEDS ORDERED: IBUPROFEN 600 MG TABLET ONE (16:03)
[2024-01-28] MEDS ORDERED: ONDANSETRON HCL/PF 4 MG/2 ML VIAL ONE (16:03)
[2024-01-28] MEDS: IV LR 1000 ML 1,000 ML BAG IV ONE (16:14)
[2024-01-28] MEDS: IBUPROFEN 600 MG TABLET PO ONE (16:14)
[2024-01-28] MEDS: ONDANSETRON HCL/PF - ER 4 MG/2 ML VIAL IV ONE (16:14)
[2024-01-28] MEDS: ACETAMINOPHEN ES 500 MG TABLET PO ONE (16:14)
[2024-01-28 16:45] LABS: BASOPHILS # (AUTO) 0.1 K/uL (0.0-0.2); BASOPHILS % (AUTO) 0.6 % (0.0-2.0); EOSINOPHILS % (AUTO) 0.2 % (0.0-6.0); HEMATOCRIT 38 % (33-45); HEMOGLOBIN 12.4 g/dL (11.5-14.8); LYMPHOCYTES % (AUTO) 7.8 % (20.0-44.0); MEAN CORPUSCULAR HEMOGLOBIN 31 PG (26.0-33.0); MEAN CORPUSCULAR HGB CONC 33 g/dl (31.0-36.0); MEAN CORPUSCULAR VOLUME 94 fL (82-100); MONOCYTES # (AUTO) 0.7 K/uL (0.1-1.30); MONOCYTES % (AUTO) 5.4 % (2.0-12.0); NEUTROPHILS # (AUTO) 11.4 K/uL (1.8-8.9); PLATELET COUNT (AUTO) 294 K/uL (150-450); RED BLOOD CELL COUNT(AUTO) 3.99 MIL/uL (4.0-5.2); RED CELL DISTRIBUTION WIDTH 13.7 % (11.5-15.0); WHITE BLOOD COUNT (AUTO) 13.3 K/uL (4.3-11.0)
[2024-01-28 17:00] LABS: CALCIUM, SERUM 9.4 mg/dL (8.5-10.1); CARBON DIOXIDE 26 mmol/L (21-32); CHLORIDE 107 mmol/L (98-107); CREATININE 0.8 mg/dL (0.6-1.3); GLUCOSE 99 mg/dL (74-106); POTASSIUM 3.8 mmol/L (3.5-5.1); SODIUM SERUM 141 mmol/L (136-145); UREA NITROGEN, BLOOD 12 mg/dL (7-18)
[2024-01-28 17:04] LABS: ALANINE AMINOTRANSFERASE 32 U/L (12-78); ALBUMIN 3.6 g/dL (3.4-5.0); ALKALINE PHOSPHATASE 142 U/L (46-116); ASPARTATE AMINOTRANSFERASE 26 U/L (15-37); BILIRUBIN,DIRECT 0.2 mg/dL (0.0-0.2); BILIRUBIN,TOTAL 0.8 mg/dL (0.2-1.0); TOTAL PROTEIN, SERUM 7.5 g/dL (6.4-8.2)
[2024-01-28 17:28] LABS: APPEARANCE,URINE CLEAR (CLEAR); BILIRUBIN,URINE NEGATIVE (NEGATIVE); BLOOD, URINE NEGATIVE Ery/uL (NEGATIVE); COLOR,URINE YELLOW (YELLOW); KETONES,URINE NEGATIVE (NEGATIVE); LEUKOCYTE ESTERASE ,URINE NEGATIVE (NEGATIVE); NITRITE, URINE NEGATIVE (NEGATIVE); PROTEIN,URINE NEGATIVE (NEGATIVE); UGLUCOSE NEGATIVE (NEGATIVE); UROBILINOGEN,URINE 0.2 EU/dL (0.2)
[2024-01-28] MEDS: VANCOMYCIN 1 GM in IV D5W 250 ML IV ONE (17:33)
[2024-01-28] MEDS: CEFEPIME 1 GM in IV D5W 50 ML IV ONE (17:33)
[2024-01-28] MEDS ORDERED: IBUP-1490 PO (19:29)
[2024-01-28] MEDS ORDERED: POLY10DR OP (19:29)
[2024-01-28] MEDS ORDERED: ACET-2605 PO (19:29)
[2024-01-28] MEDS ORDERED: AZIT250T13 PO (19:29)
[2024-01-28 19:37] VITALS: BP 132/88; TEMP 98; O2SAT 98
== END 2024-01-28 19:37 | disposition home or self-care (01) ==
LOC: ER 15:29
DX: H10.9 Unspecified conjunctivitis (principal); E86.0 Dehydration; I10 Essential (primary) hypertension; E11.9 Type 2 diabetes mellitus without complications; E78.00 Pure hypercholesterolemia, unspecified; Z98.890 Other specified postprocedural states; Z79.52 Long term (current) use of systemic steroids; Z20.822 Contact with and (suspected) exposure to COVID-19; Z79.899 Other long term (current) drug therapy
CPT/HCPCS: 99285; 96365; 71045; 96361; 96375; 87426; 96368; 93005; 87804 ×2; 85025; 80048; 87040; 87086; 83605 ×2; 80076; 81003; 36415; 84484; J3370; J2405 ×2; J7060; J7120; J0692

== ENCOUNTER 2024-03-13 12:53 | Emergency (ER) | payer MEDICAID ==
[~2024-03-13] VITALS: Ht 157.5 cm; Wt 74.8 kg
[~2024-03-13 12:53] MED LIST changes: +ACET-2605 PO; +AZIT250T13 PO; +IBUP-1490 PO; +POLY10DR OP
[2024-03-13 12:55] VITALS: TEMP 98
[2024-03-13] MEDS: ONDANSETRON HCL/PF 4 MG/2 ML VIAL IVP ONE (13:18)
[2024-03-13 13:21] LABS: BASOPHILS % (AUTO) 0.4 % (0.0-2.0); EOSINOPHILS # (AUTO) 0.2 K/uL (0.0-0.7); EOSINOPHILS % (AUTO) 2.6 % (0.0-6.0); HEMATOCRIT 43 % (33-45); HEMOGLOBIN 14.3 g/dL (11.5-14.8); LYMPHOCYTES # (AUTO) 1.2 K/uL (0.8-4.8); MEAN CORPUSCULAR HEMOGLOBIN 32 PG (26.0-33.0); MEAN CORPUSCULAR HGB CONC 34 g/dl (31.0-36.0); MEAN CORPUSCULAR VOLUME 95 fL (82-100); MONOCYTES # (AUTO) 0.2 K/uL (0.1-1.30); MONOCYTES % (AUTO) 2.9 % (2.0-12.0); NEUTROPHILS # (AUTO) 5.3 K/uL (1.8-8.9); NEUTROPHILS % (AUTO) 77.1 % (43.0-81.0); PLATELET COUNT (AUTO) 271 K/uL (150-450); RED BLOOD CELL COUNT(AUTO) 4.51 MIL/uL (4.0-5.2); RED CELL DISTRIBUTION WIDTH 14.4 % (11.5-15.0); WHITE BLOOD COUNT (AUTO) 6.9 K/uL (4.3-11.0)
[2024-03-13] MEDS ORDERED: ONDANSETRON HCL/PF 4 MG/2 ML VIAL ONE (13:21)
[2024-03-13 13:56] LABS: CALCIUM, SERUM 9.5 mg/dL (8.5-10.1); CREATININE 0.8 mg/dL (0.6-1.3); POTASSIUM 3.6 mmol/L (3.5-5.1)
[2024-03-13 14:02] LABS: ALBUMIN 3.7 g/dL (3.4-5.0); BILIRUBIN,DIRECT 0.2 mg/dL (0.0-0.2); BILIRUBIN,TOTAL 0.8 mg/dL (0.2-1.0); TOTAL PROTEIN, SERUM 7.8 g/dL (6.4-8.2)
[2024-03-13] MEDS ORDERED: ONDA4TAB5 PO (15:05)
[2024-03-13] MEDS ORDERED: FAMO-131 PO (15:05)
[2024-03-13] MEDS: IV NS 0.9% 1,000 ML BAG IV ONE (15:10)
[2024-03-13] MEDS: LIDOCAINE VISCOUS 2% UD 15 ML UDC MM ONE (15:14)
[2024-03-13] MEDS: FAMOTIDINE/PF INJ 20 MG/2 ML VIAL IV ONE (15:14)
[2024-03-13] MEDS: MAG HYDROX/AL HYDROX/SIMETH 30 ML UDC PO ONE (15:14)
[2024-03-13] MEDS ORDERED: MAG HYDROX/AL HYDROX/SIMETH 30 ML UDC ONE (15:16)
[2024-03-13] MEDS ORDERED: FAMOTIDINE/PF INJ 20 MG/2 ML VIAL IV ONE (15:18)
[2024-03-13] MEDS ORDERED: LIDOCAINE VISCOUS 2% UD 15 ML UDC ONE (15:18)
[2024-03-13 16:26] VITALS: BP 148/92; O2SAT 100
== END 2024-03-13 16:05 | disposition home or self-care (01) ==
LOC: ER 12:59
DX: R11.2 Nausea with vomiting, unspecified (principal); R10.13 Epigastric pain; R51.9 Headache, unspecified; R53.83 Other fatigue; E11.9 Type 2 diabetes mellitus without complications; E78.5 Hyperlipidemia, unspecified; I10 Essential (primary) hypertension; Z79.52 Long term (current) use of systemic steroids; Z20.822 Contact with and (suspected) exposure to COVID-19
CPT/HCPCS: 99284; 96374; 96361; 96375; 87426; 93005; 87804 ×2; 85025; 80048; 83690; 80076; 36415; J3490; J2405; J7030

== ENCOUNTER 2024-10-23 17:35 | Emergency (ER) | payer MEDICAID, OTHER ==
[~2024-10-23] VITALS: Ht 167.6 cm; Wt 76.2 kg
[~2024-10-23 17:35] MED LIST changes: +FAMO-131 PO; +ONDA4TAB5 PO
[2024-10-23] MEDS: ONDANSETRON HCL/PF - ER 4 MG/2 ML VIAL IV ONE (18:30)
[2024-10-23] MEDS ORDERED: MORPHINE SULFATE INJ 2 MG/ML DISP.SYRIN ONE (18:31)
[2024-10-23] MEDS ORDERED: ONDANSETRON HCL/PF 4 MG/2 ML VIAL ONE (18:31)
[2024-10-23] MEDS: MORPHINE SULFATE INJ 2 MG/ML DISP.SYRIN IV ONE (18:42)
[2024-10-23 18:59] LABS: BASOPHILS % (AUTO) 0.4 % (0.0-2.0); EOSINOPHILS # (AUTO) 0.2 K/uL (0.0-0.7); EOSINOPHILS % (AUTO) 1.7 % (0.0-6.0); HEMATOCRIT 40 % (33-45); HEMOGLOBIN 13.2 g/dL (11.5-14.8); LYMPHOCYTES # (AUTO) 2.7 K/uL (0.8-4.8); LYMPHOCYTES % (AUTO) 21.4 % (20.0-44.0); MEAN CORPUSCULAR HEMOGLOBIN 31 PG (26.0-33.0); MEAN CORPUSCULAR HGB CONC 33 g/dl (31.0-36.0); MEAN CORPUSCULAR VOLUME 94 fL (82-100); MONOCYTES # (AUTO) 0.6 K/uL (0.1-1.30); MONOCYTES % (AUTO) 4.3 % (2.0-12.0); NEUTROPHILS # (AUTO) 9.2 K/uL (1.8-8.9); NEUTROPHILS % (AUTO) 72.2 % (43.0-81.0); PLATELET COUNT (AUTO) 291 K/uL (150-450); RED BLOOD CELL COUNT(AUTO) 4.25 MIL/uL (4.0-5.2); RED CELL DISTRIBUTION WIDTH 13.5 % (11.5-15.0); WHITE BLOOD COUNT (AUTO) 12.7 K/uL (4.3-11.0)
[2024-10-23 19:12] LABS: CALCIUM, SERUM 9.9 mg/dL (8.5-10.1); CREATININE 0.6 mg/dL (0.6-1.3); POTASSIUM 3.7 mmol/L (3.5-5.1)
[2024-10-23 19:23] LABS: ALBUMIN 3.8 g/dL (3.4-5.0); BILIRUBIN,TOTAL 0.8 mg/dL (0.2-1.0); TOTAL PROTEIN, SERUM 7.4 g/dL (6.4-8.2)
[2024-10-23 19:26] LABS: APPEARANCE,URINE CLEAR (CLEAR); BILIRUBIN,URINE NEGATIVE (NEGATIVE); BLOOD, URINE 3+ Ery/uL (NEGATIVE); COLOR,URINE YELLOW (YELLOW); KETONES,URINE NEGATIVE (NEGATIVE); LEUKOCYTE ESTERASE ,URINE 1+ (NEGATIVE); NITRITE, URINE NEGATIVE (NEGATIVE); PROTEIN,URINE NEGATIVE (NEGATIVE); UGLUCOSE NEGATIVE (NEGATIVE); UROBILINOGEN,URINE 0.2 EU/dL (0.2)
[2024-10-23 19:32] LABS: ADD URINE CULTURE YES; BACTERIA,URINE Few /HPF (None Seen); SQUAMOUS EPITHELIAL CELL,UR Moderate /HPF (None Seen)
[2024-10-23] MEDS ORDERED: CEFTRIAXONE 1GM BAG (ER ONLY) 50 ML IV ONE (20:57)
[2024-10-23] MEDS ORDERED: KETOROLAC TROMETHAMINE INJ 30 MG/ML VIAL ONE (20:57)
[2024-10-23] MEDS ORDERED: KETOROLAC TROMETHAMINE 15 MG/ML VIAL ONE (20:59)
[2024-10-23] MEDS ORDERED: CEPH500C2 PO (21:02)
[2024-10-23] MEDS ORDERED: IBUP-1490 PO (21:02)
[2024-10-23] MEDS: CEFTRIAXONE 1 G in IV D5W 50 ML IV ONE (21:03)
[2024-10-23] MEDS: KETOROLAC TROMETHAMINE 15 MG/ML VIAL IV ONE (21:03)
[2024-10-23 21:24] VITALS: BP 105/47; TEMP 98.5; O2SAT 98
== END 2024-10-23 21:25 | disposition home or self-care (01) ==
LOC: ER 17:57
DX: N39.0 Urinary tract infection, site not specified (principal); R10.11 Right upper quadrant pain; I10 Essential (primary) hypertension; E11.9 Type 2 diabetes mellitus without complications; E78.00 Pure hypercholesterolemia, unspecified; Z79.52 Long term (current) use of systemic steroids; Z79.899 Other long term (current) drug therapy
CPT/HCPCS: 99285; 74176; 96365; 96375; 85025; 83690; 81001; 36415; 80053; J1885; J0696 ×2; J2405 ×2; J7060; J2270; 87086-TC

== ENCOUNTER 2025-01-21 16:27 | Emergency (ER) | payer OTHER ==
[~2025-01-21] VITALS: Ht 157.5 cm; Wt 72.6 kg
[~2025-01-21 16:27] MED LIST changes: +CEPH500C2 PO
[2025-01-21 16:53] VITALS: TEMP 98.6
[2025-01-21] MEDS ORDERED: KETOROLAC TROMETHAMINE INJ 30 MG/ML VIAL ONE (20:09)
[2025-01-21] MEDS: KETOROLAC TROMETHAMINE INJ 30 MG/ML VIAL IM ONE (20:20)
[2025-01-21 21:26] VITALS: BP 139/88; O2SAT 98
== END 2025-01-21 21:27 | disposition home or self-care (01) ==
LOC: ER 16:32
DX: M79.661 Pain in right lower leg (principal); M79.662 Pain in left lower leg; E11.9 Type 2 diabetes mellitus without complications; E78.00 Pure hypercholesterolemia, unspecified; I10 Essential (primary) hypertension; Z79.1 Long term (current) use of non-steroidal anti-inflammatories (NSAID); Z79.52 Long term (current) use of systemic steroids; Z86.79 Personal history of other diseases of the circulatory system
CPT/HCPCS: 99285; 93970; 96372; J1885